=== PATIENT | female | born 1960 | race Caucasian/White ===

== ENCOUNTER 2024-03-20 22:16 | Observation (INO) | payer BC, SELFPAY ==
--- NOTE | 2024-03-20 22:16 | ECG_ITS ---
APPROVED REPORT Exam: Resting ECG HR:68 bpm ECG Measurements Heart Rate 68 AXES CO 169 P 55 QRSd 79 QRS 4 QT 403 T 73 QTc 421 Conclusion SINUS RHYTHM NONSPECIFIC T-WAVE ABNORMALITY BORDERLINE ECG Electronically signed by : JAYLON PINEDA, 03/21/2024 07:18:40
[2024-03-20 22:25] VITALS: BP 187/92; PULSE 89; RESP 14; TEMP 36.7; O2SAT 97; BMI 23.1
--- NOTE | 2024-03-20 22:27 | XR_ITS ---
PROCEDURE INFORMATION: Exam: XR Chest Exam date and time: 03/20/2024 10:37 PM Age: 63 years old Clinical indication: Dyspnea TECHNIQUE: Imaging protocol: Radiologic exam of the chest. Views: 1 view. COMPARISON: No relevant prior studies available. FINDINGS: Lungs: Clear, symmetrically inflated lungs. Pleural spaces: No pleural effusion. No pneumothorax. Heart/Mediastinum: Cardiac silhouette is normal in size for technique. Bones/joints: Age appropriate. IMPRESSION: No acute cardiopulmonary abnormality.
[2024-03-20] MEDS: ASPIRIN 81MG CHEWABLE TABLET 324 MG PO (22:30)
[2024-03-20] MEDS: NITROGLYCERIN 0.4MG SL TABLET 0.400000000000000022 MG SL ×2 (22:30→22:35)
--- NOTE | 2024-03-20 22:32 | PC.NURSE ---
patient placed in gown
[2024-03-20 22:36] LABS: Basophils # 0.1 K/mm3 (0-0.2); Eosinophils # 0.2 K/mm3 (0.0-0.4); Eosinophils % 2.5 % (0.1-12.0); Hematocrit 41.6 % (37.0-47.0); Lymphocytes # 2.7 K/mm3 (0.7-4.5); Mean Corpuscular HGB Conc 33.6 g/dL (31.8-35.4); Mean Corpuscular Volume 95.1 fl (81-99); Mean Platelet Volume 7.7 fl (7.4-10.4); Monocytes # 0.3 K/mm3 (0.1-1.0); Neutrophils # 3.9 K/mm3 (1.8-7.8); Neutrophils % 54.5 % (37.0-80.0); Platelet Count 268 K/mm3 (142-424); Red Blood Count 4.38 M/mm3 (4.20-5.40); Red Cell Distribution Width 13.5 % (11.5-17.5); White Blood Count 7.2 K/mm3 (4.8-10.8)
[2024-03-20 22:37] VITALS: BP 158/92; PULSE 86; RESP 17; O2SAT 94
--- NOTE | 2024-03-20 22:38 | PC.NURSE ---
I rounded on the pt and she states her chest pressure/pain has decreased from a 4/10 to a 2/10
[2024-03-20 22:40] LABS: Alanine Aminotransferase 29 U/L (12-78); Albumin Level 4.6 g/dl (3.5-5.0); Albumin/Globulin Ratio 1.7 (1.1-1.8); Alkaline Phosphatase 109 U/L (38-126); Anion Gap 13.7 mEq/L (5-15); Aspartate Amino Transferase 35 U/L (14-36); Bilirubin,Total 0.7 mg/dl (0.2-1.3); Blood Urea Nitrogen 24 mg/dl (7-17); Calcium 9.5 mg/dl (8.4-10.2); Carbon Dioxide 28 mmol/L (22.0-30.0); Chloride 106 mmol/L (98-107); Creatinine Clearance Estimated 48 mL/min (50-200); Estimated Glomerular Filt Rate 46 ml/min (>60); GFR (African American) 55 ML/MIN (>60); Globulin 2.7 g/dL (1.3-3.2); Glucose 111 mg/dl (74-100); Lipase 161 U/L (23-300); Potassium 3.7 mmoL/L (3.5-5.1); Sodium 144 mmol/L (136-145); Total Protein,Serum 7.3 g/dl (6.3-8.2)
[2024-03-20 22:45] LABS: D-Dimer 0.39 ug/mL (0.0-0.5)
--- NOTE | 2024-03-20 22:45 | ED_ITS ---
Discharge Plan Disposition Patient Disposition: Admitted Chief Complaint: Chest Pain Prescriptions Prescriptions: No Action hydrocortisone 5 mg Tablet 15 mg PO DAILY atorvastatin 40 mg Tablet 40 mg PO HS levothyroxine 75 mcg Tablet 75 mcg PO DAILY valsartan 320 mg Tablet 320 mg PO DAILY desmopressin 0.1 mg Tablet 0.1 mg PO HS omega 1-hsf-ixo-fish oil [Fish Oil] 300-1,000 mg Capsule 300 cap PO DAILY Clinical Impressions Clinical Impression: Unstable angina, Syncope Discharge ED Provider: Michael Pereyra [facility] General Chief Complaint: Chest Pain Stated Complaint: chest pain Time Seen by Provider: 03/20/24 22:17 Mode of Arrival: Ambulatory Source of Information: Patient Limitations: No Limitations Description of Symptoms (Recalled from ER Triage Doc. by RN): pt c/o L sided chest pressure that radiates to her L shoulder and down her L arm. pt rates the pressure a 4/10. pt states the pressure is relived with immobilization, and worsens with exertion. pt reports she had similar pain/pressure a few days ago. pt reports around lunch time today she had a syncopal episode lasting approximately 5 minutes. pt states this has happened previously. History of Present Illness HPI narrative: Patient is a 63-year-old female with history of hypertension hyperlipidemia without any known history of coronary disease presenting today with chest pain. She states that she was in her normal state of health and had a syncopal episode while she was at a restaurant that did have some prodrome. EMS were called at that point and she did not come to the hospital. However shortly after that she started developing significant left-sided chest discomfort that she describes as a pressure radiating into her left shoulder associated with exertion and alleviated by rest and diaphoresis associated with that as well. She states that the symptoms have been ongoing for the last 1 hour and have not been alleviated by anything other than rest. She currently at rest states that it is 4 out of 10. She did have a stress test several years ago that she believes was a chemical stress test which was unremarkable. She has never had a heart cath in the past. No history of smoking. No other risk factors that she is aware of. No hemoptysis lower extremity edema or swelling etc. Related Data Home Medications Medication Instructions Recorded Confirmed atorvastatin 40 mg tablet 40 mg PO HS Cholesterol 03/20/24 03/20/24 desmopressin 0.1 mg tablet 0.1 mg PO HS adh replacement 03/20/24 03/20/24 hydrocortisone 5 mg tablet 15 mg PO DAILY pit gland replace 03/20/24 03/20/24 levothyroxine 75 mcg tablet 75 mcg PO DAILY thyroid 03/20/24 03/20/24 omega 9-iom-rlb-fish oil 300 300 cap PO DAILY Supplement 03/20/24 03/20/24 mg-1,000 mg capsule (Fish Oil) valsartan 320 mg tablet 320 mg PO DAILY htn 03/20/24 03/20/24 Allergies Allergy/AdvReac Type Severity Reaction Status Date / Time No Known Allergies Allergy Verified 03/20/24 22:25 [facility] Disclaimer: The information contained in this section may have been updated after the patient was seen, as this information can be updated by other users. Medical History (Updated 03/20/24 @ 22:29 by Michael Pereyra MD) Hypothyroid Hyperlipidemia Hypertension Surgical History (Updated 03/20/24 @ 22:28 by Marylin Nolasco RN) History of surgical removal of pituitary gland Social History (Updated 03/20/24 @ 22:26 by Marylin Nolasco RN) Smoking Status: Never smoker alcohol intake: current current occupational status: employed Travel in the last 8 weeks: None household members: spouse housing: house marital status: ROS Obtained: Yes All systems reviewed & no additional complaints except as documented Physical Exam General General appearance: alert and in no apparent distress Respiratory Respiratory exam: Present normal lung sounds bilaterally and respiratory distress Cardiovascular Cardiovascular exam: Present regular rate and normal rhythm Abdominal Exam Abdominal exam: Present soft and distention Neurological Exam Neurological exam: Present alert and oriented X3 HEART Score HEART Score HEART Score assessment performed?: Yes History (anamnesis): Highly suspicious ECG: Non-specific disturbance Age: 45-65 years Risk factors: 1-2 risk factors Troponin: > 3x normal limit HEART Score: 7 Procedures Miscellaneous Procedure Procedure Performed: . Limited cardiac ultrasound Indication: Chest pain Identified structures: The heart was visualized in the parasternal long axis, parastenal short axis, apical four chamber and subxyphiod views. The IVC was visualized in the short axis and long axis at its entry into the right atrium. Findings: No moderate or severe depression of LVEF no severe right heart strain no pericardial effusion no definitive regional wall motion abnormalities noted Impression: Normal limited ultrasound of the heart Images were sent to permanent archive The study was technically adequate CPT: 14792-53 This study was performed by me, and I personally interpreted all images/videos. Based on my clinical judgement, these images were adequate and did not necessitate further imaging. Critical Care Critical Care Time Critical Care Time: Yes Attestation: On 03/20/24, the high probability of a clinically significant, sudden or life threatening deterioration of the following system(s) required my full and direct attention, intervention and personal management. The time I documented below is in addition to time spent performing reported procedures but includes the following listed in this critical care notation. Total Time Total Critical Care Time: 35 Medical Decision Making Rei Inquiry Pt receiving controlled substance: No Vital Signs Vital Signs: 03/20/24 22:25 Temperature 98.1 F Temperature Source Oral Pulse Rate [Left] 89 Respiratory Rate 14 Blood Pressure [Right Arm] 187/92 H Blood Pressure Mean [Right Arm] 123 Blood Pressure Source [Right Arm] Automatic Cuff Blood Pressure Position [Right Arm] Sitting 02 Sat by Pulse Oximetry 97 Oxygen Delivery Method Room Air Lab Data Lab results reviewed: Yes I reviewed the patient's lab results. Labs: Lab Results 03/20/24 22:23: WBC 7.2, RBC 4.38, Hgb 14.0, Hct 41.6, MCV 95.1, MCH 32.0 H, MCHC 33.6, RDW 13.5, Plt Count 268, MPV 7.7, Neut % (Auto) 54.5, Lymph % (Auto) 38.0, [place] % (Auto) 4.0, Eos % (Auto) 2.5, Baso % (Auto) 1.0, Neut # (Auto) 3.9, Lymph # (Auto) 2.7, [place] # (Auto) 0.3, Eos # (Auto) 0.2, Baso # (Auto) 0.1, D- Dimer 0.39, Sodium 144, Potassium 3.7, Chloride 106, Carbon Dioxide 28, Anion Gap 13.7, BUN 24 H, Creatinine 1.20 H, Estimated Creat Clear 48, Estimated GFR 46 L, Est GFR ( Amer) 55 L, Glucose 111 H, Calcium 9.5, Total Bilirubin 0.7, AST 35, ALT 29, Alkaline Phosphatase 109, Troponin I < 0.01, Total Protein 7.3, Albumin 4.6, Globulin 2.7, Albumin/Globulin Ratio 1.7, Lipase 161 03/20/24 22:23 03/20/24 22:23 Response Orders (Tests/Meds): ED MEDICATIONS Generic Name Dose Route Start Last Admin Trade Name Adam PRN Reason Stop Dose Admin Nitroglycerin 0.4 mg 03/20/24 22:27 03/20/24 22:35 Nitroglycerin 0.4mg Sl Tablet SL 04/19/24 22:26 0.4 mg Q5MINP PRN Administration Chest Pain Discontinued Medications Generic Name Dose Route Start Last Admin Trade Name Freq PRN Reason Stop Dose Admin Aspirin 324 mg 03/20/24 22:27 03/20/24 22:30 Aspirin 81mg Chewable Tablet PO 03/20/24 22:28 324 mg ONCE ONE Administration ORDERS Category Date Time Status CXR --portable [XR chest portable] Stat Exams 03/20/24 22:27 Taken POCUS Point of Care (ER Only) Stat Exams 03/20/24 22:28 Ordered CBC w/Auto Diff [Complete Blood Count Auto Diff] Stat Lab 03/20/24 22:23 Completed CMP [Comprehensive Metabolic Panel] Stat Lab 03/20/24 22:23 Completed D-Dimer Stat Lab 03/20/24 22:23 Completed Lipase Stat Lab 03/20/24 22:23 Completed Trop I [Troponin I] Stat Lab 03/20/24 22:23 Completed Troponin I Q3H Lab 03/21/24 01:30 Ordered Troponin I Q3H Lab 03/21/24 04:30 Ordered MDM Narrative Medical Decision Narrative: Patient is a 63-year-old female with above history very concerning for acute coronary syndrome. No STEMI on EKG. EKG was performed to person interpreted shows a sinus rhythm there are T wave inversions in the aVL and V2 leads V2 in particular appears pathologic. I do not have an old EKG to compare to. She is never been told she has had an abnormal EKG in the past. No ST elevations or depressions or acute definitive ischemic changes noted however. There is a normal axis. No conduction abnormalities. Patient symptoms were concerning enough to be due to limited bedside ultrasound which I performed and did not see any obvious regional wall motion abnormalities at the moment. She was given aspirin and I titrated nitroglycerin to resolution of her symptoms as she would be a candidate to go to the Clinical Technician if we cannot get her pain under control. After 1 nitroglycerin her pain went from 4-2 and after the second nitroglycerin her pain was completely resolved. She is currently asymptomatic. Regardless of whether or not her troponin is elevated she will be treated for acute coronary syndrome. Will discuss the case with hospital medicine for admission at which point cardiology can see her tomorrow
--- NOTE | 2024-03-20 22:45 | PC.NURSE ---
Patient reports pain resolution at this time after nitro x 2 doses. Provider notified.
--- OUTSIDE RECORDS SUMMARY | 2024-03-20 22:59 | XMS_ITS | Patient Health Record ---
Author Name Unknown Organization [facility] Address [address] [place] [address] Care Team Providers Care Merchandise Support Associate Name Role Phone Christiana Maza Unavailable [phone] Allergies No Known Allergies Results Component Value Reference Range Notes Pap w/HPV Reviewed date:11/25/2023 12:56:27 PM Interpretation:NILM/HPV neg Performing Lab:[facility] - MIR CLIA ID [id number], [address], [address], [place] [address], Director - Dian Huggins MD Notes/Report: Any Nucleic Acid Amplification testing is performed on the [employer] [place]. Diagnosis: Negative for intraepithelial lesion or malignancy. AP results FINAL VICE PRESIDENT [facility] [facility] CYTOLOGY REPORT DIAGNOSIS: Negative for intraepithelial lesion or malignancy. Specimen Adequacy: Satisfactory for interpretation with endocervical/transformat ion zone component present. Pertinent Clinical History/History of Surgery: Not Provided Collection Technique: [place]-Alone, [place]-Alone Results of Last Pap: Not Provided LMP: unknown Date of Last Pap: Not Provided Specimen Source: Cervical/Endocervical Specimen Type: Not Provided Other Gynecological Patient Information: No patient information provided Recommendation: Follow-up based on current clinical guidelines and/or clinical consideration. Screening note: This specimen has been analyzed by the [employer] System, an interactive computer system which assists the lab in screening of ThinPrep Pap Test slides. Following imaging, the slide was reviewed by a Eradicator and/or Pathologist. Negative Educational Note: The pap screening test aids in the detection of premalignant and malignant states of the cervix. False positive and negative results may occur. It is not a diagnostic test. If abnormal cells are reported, follow-up based on current clinical guidelines and/or clinical consideration is recommended. Justina Sun Eradicator CPT Codes: 35221 ICD Codes: Z01.419 HPV High-Risk Negative Negative Reason For Referral No Information Medications Medication SIG (Take, Route, Fr equency, Duration) Notes Start Date End Date Status Fish Oil Active Valsartan Active Levothyroxine Sodium Active Hydrocortisone Activ e Desmopressin Acetate Active Atorvastatin Calcium Active Social History Tobacco Use: Social History Observation Description Date Details (start date - stop date) Never Smoker NA - NA Sex Assigned At : Social History Observation Description Sex Assigned At Female Tobacco Control (Standard) Question Answer Notes Tobacco use: Nonsmoker Vital Signs Heart Rate 86 /min 11/18/2023 Oximetry 99 % 11/18/2023 Blood pressure diastolic 82 mm Hg 11/18/2023 Height 64 in 11/18/2023 Blood pressure systolic 130 mm Hg 11/18/2023 Weight 136.8 lbs 11/18/2023 BMI 23.48 kg/m2 11/18/2023 Encounters Encounter Location Date Provider Diagnosis [facility] [address] [place] [address] 11/18/2023 Christiana Maza Encounter for gynecological examination (general) (routine) without abnormal findings Z01.419 and Visit for screening mammogram Z12.31 Assessments Encounter Date Diagnosis (ICD Code) Assessment Notes Treat ment Notes Treatment Clinical Notes 11/18/2023 Encounter for gynecological examination (general) (routine) without abnormal findings (ICD-10 - Z01.419) We encouraged a healthy lifestyle for our patients. Avoid the use of tobacco and drugs. Limit the use of alcohol. Take a multivitamin daily that contains 400mcg folic acid, 400-500mg calcium, and 800 units vitamin D. Exercise regularly (4 or more times per week for 30 mins. or more each time), eat a healthy diet, and maintain a healthy weight. Perform monthly breast self exams., Well Visit, Women 50 to 65: Care Instructions material was published 11/18/2023 Visit for screening mammogram (ICD-10 - Z12.31) Plan Of Treatment Next Appt Details Provider Name:Christiana Maza, 11/24/2024 11:30:00 AM, [address] [facility], [place], [address], Insurance Providers Payer Name Payer Address Payer Phone Subscriber Number Group Number Insured Name Patient Relationship to Insured Coverage Start Date Coverage End Date Anton RANDALL [address] [place] [address] [id number] RosaiteMia Self - patient is the insured Medical (General) History Medical History History ICD Code high blood pressure IBS high cholesterol pituitary gland tumor Surgical History Surgery Date(Month/Year) pituitary gland tumor removal
[2024-03-20 23:00] VITALS: BP 150/81; PULSE 77; RESP 17; O2SAT 95
[2024-03-20 23:00] LABS: Troponin I < 0.01 ng/ml (0.00-0.034)
--- NOTE | 2024-03-20 23:01 | ECG_ITS ---
APPROVED REPORT Exam: Resting ECG HR:73 bpm ECG Measurements Heart Rate 73 AXES TN 166 P 54 QRSd 94 QRS -2 QT 413 T 71 QTc 439 Conclusion SINUS RHYTHM MODERATE T-WAVE ABNORMALITY, CONSIDER ANTERIOR ISCHEMIA [-0.1+ mV T-WAVE IN V3/V4] ABNORMAL ECG Electronically signed by : JAYLON PINEDA, 03/21/2024 07:18:27
--- NOTE | 2024-03-20 23:03 | PC.NURSE ---
Admitting notified for admission. OBS/Hospitalist/Unstable Angina/206
--- NOTE | 2024-03-20 23:04 | PC.NURSE ---
repeat EKG completed at 2301
--- NOTE | 2024-03-20 23:11 | PC.NURSE ---
Report called to Jessica VEGA
[2024-03-20 23:18] VITALS: BP 150/81; PULSE 69; RESP 17; TEMP 36.7; O2SAT 97
--- NOTE | 2024-03-20 23:57 | P.HP_ITS ---
History of Present Illness *Admission Date: 03/20/24 *Reason for visit:: CP *History of present illness: This is a 63-year-old female with PMHx of hypertension hyperlipidemia, hypothyroidism, without any known history of coronary disease, presented to ED today for evaluation with chest pain. She states that she was having dinner at a near by restaurant and had a syncopal episode. EMS were called at that point and she did not come to the hospital. However shortly after that she started developing significant left-sided chest discomfort that she describes as a pressure radiating into her left shoulder associated with exertion and alleviated by rest and diaphoresis associated with that as well. She states that the symptoms have been ongoing for the last 1 hour and have not been alleviated by anything other than rest. She currently at rest states that it is 4 out of 10. She did have a stress test several years ago that she believes was a chemical stress test which was unremarkable. She has never had a heart cath in the past. No history of smoking. No other risk factors that she is aware of. No hemoptysis lower extremity edema or swelling etc. Admitted for further work up and management. [facility] Disclaimer: The information contained in this section may have been updated after the patient was seen, as this information can be updated by other users. Medical History (Updated 03/21/24 @ 01:27 by Brady Najera APRN) Hypothyroid Hyperlipidemia Hypertension Surgical History (Updated 03/20/24 @ 22:28 by Marylin Nolasco RN) History of surgical removal of pituitary gland Family History (Updated 03/20/24 @ 23:51 by Lorna Daniels RN) Other Cancer Diabetes Heart disease Social History (Updated 03/20/24 @ 23:51 by Lorna Daniels RN) Smoking Status: Never smoker alcohol intake: current current occupational status: employed Travel in the last 8 weeks: None household members: spouse housing: house marital status: Review of Systems Review of Systems Review of systems:: pertinent systems reviewed and negative unless documented b elow Meds Home Medications and Allergies Home Medications Medication Instructions Recorded Confirmed Type atorvastatin 40 mg tablet 40 mg PO HS Cholesterol 03/20/24 03/20/24 History desmopressin 0.1 mg tablet 0.1 mg PO HS adh replacement 03/20/24 03/20/24 History hydrocortisone 5 mg tablet 15 mg PO DAILY pit gland replace 03/20/24 03/20/24 History levothyroxine 75 mcg tablet 75 mcg PO DAILY thyroid 03/20/24 03/20/24 History omega 6-aeo-fct-fish oil 300 300 cap PO DAILY Supplement 03/20/24 03/20/24 Hi story mg-1,000 mg capsule (Fish Oil) valsartan 320 mg tablet 320 mg PO DAILY htn 03/20/24 03/20/24 History New Prescriptions to Start Prescriptions: Allergies Allergy/AdvReac Type Severity Reaction Status Date / Time No Known Allergies Allergy Verified 03/20/24 22:25 Exam Data for Last 24 hours Vital signs and Labs for Last 24 Hours: Temp Pulse Resp BP Pulse Ox O2 Del Method 98.1 F 69 17 150/81 H 95 Room Air 03/20/24 23:18 03/20/24 23:18 03/20/24 23:18 03/20/24 23:18 03/20/24 23:00 03/20/24 22:25 Laboratory Results - last 24 hr 03/20/24 22:23: WBC 7.2, RBC 4.38, Hgb 14.0, Hct 41.6, MCV 95.1, MCH 32.0 H, MCHC 33.6, RDW 13.5, Plt Count 268, MPV 7.7, Neut % (Auto) 54.5, Lymph % (Auto) 38.0, [place] % (Auto) 4.0, Eos % (Auto) 2.5, Baso % (Auto) 1.0, Neut # (Auto) 3.9, Lymph # (Auto) 2.7, [place] # (Auto) 0.3, Eos # (Auto) 0.2, Baso # (Auto) 0.1, D- Dimer 0.39, Sodium 144, Potassium 3.7, Chloride 106, Carbon Dioxide 28, Anion Gap 13.7, BUN 24 H, Creatinine 1.20 H, Estimated Creat Clear 48, Estimated GFR 46 L, Est GFR ( Amer) 55 L, Glucose 111 H, Calcium 9.5, Total Bilirubin 0.7, AST 35, ALT 29, Alkaline Phosphatase 109, Troponin I < 0.01, Total Protein 7.3, Albumin 4.6, Globulin 2.7, Albumin/Globulin Ratio 1.7, Lipase 161 I & O for Last 24 hours: Intake & Output 03/17/24 03/18/24 03/19/24 03/20/24 23:59 23:59 23:59 23:59 Weight 61.235 kg Constitutional Constitutional: no acute distress *Routine HEENT Exam Head: Present normocephalic Eye: Present EOMI and PERRL ENT: Present mucous membranes moist *Routine Neck Exam Neck: Present supple; Absent lymphadenopathy *Routine Respiratory Exam Respiratory: Present CTA bilaterally *Routine Cardiovascular Exam Cardiovascular: Present RRR *Routine Abdominal Exam Abdominal: Present soft and normoactive bowel sounds; Absent tenderness *Routine Rectal Exam Rectal:: deferred *Routine Genitalia Exam Genitalia:: deferred *Routine Extremities Exam Extremities: Absent cyanosis, clubbing or edema *Routine Skin Exam Skin: Present warm; Absent rash *Routine Neurological Exam Neurological: Present alert and oriented X3 H&P: Result Imaging and Cardiology EKG: Status: image reviewed by me, Preliminary report and final report Chest x-ray: Status: image reviewed by me, Preliminary report and final report Assessment and Plan *Assessment and plan (1) Unstable angina: Status: Acute Category: Medical Code(s): I20.0 - Unstable angina (2) Syncope: Status: Acute Qualifiers: Syncope type: unspecified Qualified Code(s): R55 - Syncope and collapse Category: Medical Code(s): R55 - Syncope and collapse (3) Hypertension: Status: Acute Qualifiers: Hypertension type: unspecified Qualified Code(s): I10 - Essential (primary) hypertension Category: Medical Code(s): I10 - Essential (primary) hypertension (4) Hyperlipidemia: Status: Acute Qualifiers: Hyperlipidemia type: unspecified Qualified Code(s): E78.5 - Hyperlipidemia, unspecified Category: Medical Code(s): E78.5 - Hyperlipidemia, unspecified (5) Hypothyroid: Status: Acute Qualifiers: Hypothyroidism type: unspecified Qualified Code(s): E03.9 - Hypothyroidism, unspecified Category: Medical Code(s): E03.9 - Hypothyroidism, unspecified Plan 63-year-old female with PMHx of hypertension hyperlipidemia, hypothyroidism, without any known history of coronary disease, presented to ED today for evaluation with chest pain. She states that she was having dinner at a near by restaurant and had a syncopal episode. On arrival patient was still having chest discomfort. nitro SL x2 was given. loaded with 324mg aspirin. EKG does not showed ST changes. troponin are initially negative. ED requested admission for continuous monitoring. agreed for it. Plan as follow: Unstable angina. Syncope. to rule out ACS: Admit patient for continuous cardiac monitoring Trending troponin EKG as needed Monitor for chest pain and vital signs per unit protocol Cardiology consult. Keep n.p.o. after midnight for possible cardiac intervention Repeat labs in the morning Obtain lipid profile and the rest of the cardiac risk assessment aspirin 324mg. Continue daily 81 mg -Hypertension: Resume valsartan Hyperlipidemia: On atorvastatin Hypothyroidism On Synthroid Lovenox for DVT prophylaxis. On Protonix for GI bleed protection Full code
[2024-03-21] VITALS: BP 150/81; PULSE 50; PULSE 66; RESP 18; O2SAT 97
[2024-03-21] MEDS: 0.9 % SODIUM CHLORIDE 1000ML 1,000 ML 50 ML IV (00:07)
[2024-03-21 02:05] LABS: Troponin I < 0.01 ng/ml (0.00-0.034)
[2024-03-21 04:00] VITALS: BP 136/61; PULSE 50; PULSE 55; RESP 16; TEMP 36.8; O2SAT 97; BMI 23.0
--- NOTE | 2024-03-21 04:47 | PC.NURSE ---
pt admitted for [facility]. denies chest pain/pressure, vss, nsr on monitor, trop x2 <0.01. pt has been npo after mn for cadiology consult
[2024-03-21 05:04] LABS: Thyroid Stimulating Hormone < 0.02 uIU/mL (0.465-4.68)
[2024-03-21 05:05] LABS: Troponin I < 0.01 ng/ml (0.00-0.034)
[2024-03-21 07:37] LABS: Chloride 109 mmol/L (98-107); Potassium 3.9 mmoL/L (3.5-5.1); Sodium 141 mmol/L (136-145)
[2024-03-21 07:39] LABS: Basophils % 0.6 % (0.1-2.0); Eosinophils # 0.1 K/mm3 (0.0-0.4); Eosinophils % 2.3 % (0.1-12.0); Hematocrit 38.3 % (37.0-47.0); Hemoglobin 12.6 g/dL (12.2-16.2); Lymphocytes # 2.3 K/mm3 (0.7-4.5); Lymphocytes % 38.6 % (10-50); Mean Corpuscular Hemoglobin 31.7 pg (27.0-31.2); Mean Platelet Volume 8.3 fl (7.4-10.4); Monocytes # 0.3 K/mm3 (0.1-1.0); Monocytes % 4.5 % (1.7-9.3); Neutrophils # 3.2 K/mm3 (1.8-7.8); Neutrophils % 53.8 % (37.0-80.0); Platelet Count 228 K/mm3 (142-424); Red Blood Count 3.99 M/mm3 (4.20-5.40); Red Cell Distribution Width 13.8 % (11.5-17.5)
[2024-03-21 07:40] LABS: Anion Gap 10.9 mEq/L (5-15); Blood Urea Nitrogen 22 mg/dl (7-17); Calcium 8.7 mg/dl (8.4-10.2); Carbon Dioxide 25 mmol/L (22.0-30.0); Cholesterol 125 mg/dl (140-200); Creatinine Clearance Estimated 56 mL/min (50-200); Estimated Glomerular Filt Rate 56 ml/min (>60); GFR (African American) 68 ML/MIN (>60); Glucose 102 mg/dl (74-100); Magnesium 2.1 mg/dl (1.6-2.3); Triglycerides 175 mg/dl (30-150); VLDL Cholesterol 35 mg/dL (0-40)
[2024-03-21 07:41] LABS: Chol/HDL Ratio 4.5 (1-3.5); HDL Cholesterol 28 mg/dl (40-60)
[2024-03-21 07:49] LABS: INR 1.03 (0.9-1.1); Prothrombin Time 11.1 seconds (10.1-12.5)
[2024-03-21 08:00] VITALS: BP 126/56; PULSE 50; PULSE 55; RESP 16; TEMP 36.6; O2SAT 98
[2024-03-21] MEDS: ASPIRIN 81MG CHEWABLE TABLET 81 MG PO (08:42)
[2024-03-21] MEDS: IRBESARTAN 300MG TABLET 300 MG PO (08:42)
[2024-03-21] MEDS: LEVOTHYROXINE 75MCG (0.075MG) TAB 75 MCG PO (08:42)
--- NOTE | 2024-03-21 08:42 | HMH.PHAINT1 ---
Pharmacy Intervention Comments: MEDICATION RECONCILIATION COMPLETED ON PATIENT USING EXTERNAL FILL HISTORY FROM PHARMACY. -ZULY ELDRIDGE, BABITAD
[2024-03-21 10:02] LABS: Hemoglobin A1C 5.1 % (4.0-6.0)
--- NOTE | 2024-03-21 11:33 | P.DS_ITS ---
General Admission date:: 03/20/24 Discharge date: 03/21/24 HPI HPI HPI: This is a 63-year-old female with PMHx of hypertension hyperlipidemia, hypothyroidism, without any known history of coronary disease, presented to ED today for evaluation with chest pain. She states that she was having dinner at a near by restaurant and had a syncopal episode. EMS were called at that point and she did not come to the hospital. However shortly after that she started developing significant left-sided chest discomfort that she describes as a pressure radiating into her left shoulder associated with exertion and allevi ated by rest and diaphoresis associated with that as well. She states that the symptoms have been ongoing for the last 1 hour and have not been alleviated by anything other than rest. She currently at rest states that it is 4 out of 10. She did have a stress test several years ago that she believes was a chemical stress test which was unremarkable. She has never had a heart cath in the past. No history of smoking. No other risk factors that she is aware of. No hemoptysis lower extremity edema or swelling etc. Admitted for further work up and management. Hospital Course Hospital Course Hospital Course: 63-year-old female with PMHx of hypertension hyperlipidemia, hypothyroidism, without any known history of coronary disease, presented to ED today for evaluation with chest pain. She states that she was having dinner at a near by restaurant and had a syncopal episode. On arrival patient was still having chest discomfort. nitro SL x2 was given. loaded with 324mg aspirin. EKG does not showed ST changes. troponin are initially negative. ED requested admission for continuous monitoring. agreed for it. Plan as follow: Unstable angina. Syncope. to rule out ACS: - Patient to follow up with cardiology on saturday, no complains of chest since arrival, patient mentions she does not want to stay in hospital until saturday to be seen by cardiology, she is requesting to be discharged, spoke to cardiology who recommended to follow up in office on saturday and can be discharged, will dc on asa 81mg daily patient also counseled to come to ED if has any chest pain, patient verbalized understanding On the date of discharge, the patient reported feeling stable. The patient was found not to be in any acute distress, and no new abnormalities on physical examination. Further, the patient expressed appropriate understanding of, and agreement with, the discharge recommendations, medications, and plan. Time spent 37 mins Exam Data for Last 24 hours Vital signs and Labs for Last 24 Hours: Temp Pulse Resp BP Pulse Ox O2 Del Method 97.9 F 55 L 16 126/56 L 98 Room Air 03/21/24 08:00 03/21/24 08:00 03/21/24 08:00 03/21/24 08:00 03/21/24 08:00 03/21/24 09:00 Laboratory Results - last 24 hr 03/20/24 22:23: WBC 7.2, RBC 4.38, Hgb 14.0, Hct 41.6, MCV 95.1, MCH 32.0 H, MCHC 33.6, RDW 13.5, Plt Count 268, MPV 7.7, Neut % (Auto) 54.5, Lymph % (Auto) 38.0, [place] % (Auto) 4.0, Eos % (Auto) 2.5, Baso % (Auto) 1.0, Neut # (Auto) 3.9, Lymph # (Auto) 2.7, [place] # (Auto) 0.3, Eos # (Auto) 0.2, Baso # (Auto) 0.1, D- Dimer 0.39, Sodium 144, Potassium 3.7, Chloride 106, Carbon Dioxide 28, Anion Gap 13.7, BUN 24 H, Creatinine 1.20 H, Estimated Creat Clear 48, Estimated GFR 46 L, Est GFR ( Amer) 55 L, Glucose 111 H, Calcium 9.5, Total Bilirubin 0.7, AST 35, ALT 29, Alkaline Phosphatase 109, Troponin I < 0.01, Total Protein 7.3, Albumin 4.6, Globulin 2.7, Albumin/Globulin Ratio 1.7, Lipase 161 03/21/24 01:20: Troponin I < 0.01 03/21/24 04:20: Troponin I < 0.01, TSH < 0.02 L 03/21/24 06:41: WBC 6.0, RBC 3.99 L, Hgb 12.6, Hct 38.3, MCV 96.0, MCH 31.7 H, MCHC 33.0, RDW 13.8, Plt Count 228, MPV 8.3, Neut % (Auto) 53.8, Lymph % (Auto) 38.6, [place] % (Auto) 4.5, Eos % (Auto) 2.3, Baso % (Auto) 0.6, Neut # (Auto) 3.2, Lymph # (Auto) 2.3, [place] # (Auto) 0.3, Eos # (Auto) 0.1, Baso # (Auto) 0.0, PT 11.1, INR 1.03, Sodium 141, Potassium 3.9, Chloride 109 H, Carbon Dioxide 25, Anion Gap 10.9, BUN 22 H, Creatinine 1.00, Estimated Creat Clear 56, Estimated GFR 56 L, Est GFR ( Amer) 68 D, Glucose 102 H, Hemoglobin A1c 5.1, Calcium 8.7, Magnesium 2.1, Triglycerides 175 H, Cholesterol 125 L, LDL Cholesterol Direct 61.30 L, VLDL Cholesterol 35, HDL Cholesterol 28 L, Cholesterol/HDL Ratio 4.5 H I & O for Last 24 hours: Intake & Output 03/18/24 03/19/24 03/20/24 03/21/24 23:59 23:59 23:59 23:59 Output Total 0 / 0 Balance 0 / 0 Weight 61.235 kg 61.235 kg Constitutional Constitutional: no acute distress *Routine HEENT Exam Head: Present normocephalic Eye: Present EOMI and PERRL ENT: Present mucous membranes moist *Routine Neck Exam Neck: Present supple; Absent lymphadenopathy *Routine Respiratory Exam Respiratory: Present CTA bilaterally *Routine Cardiovascular Exam Cardiovascular: Present RRR *Routine Abdominal Exam Abdominal: Present soft and normoactive bowel sounds; Absent tenderness *Routine Extremities Exam Extremities: Absent cyanosis, clubbing or edema *Routine Skin Exam Skin: Present warm; Absent rash *Routine Neurological Exam Neurological: Present alert and oriented X3 Results Data Completed and Pending Labs on day of discharge: Labs from last 24 hours 03/21/24 03/21/24 03/21/24 06:41 04:20 01:20 WBC 6.0 RBC 3.99 L Hgb 12.6 Hct 38.3 MCV 96.0 MCH 31.7 H MCHC 33.0 RDW 13.8 Plt Count 228 MPV 8.3 Neut % (Auto) 53.8 Lymph % (Auto) 38.6 [place] % (Auto) 4.5 Eos % (Auto) 2.3 Baso % (Auto) 0.6 Neut # (Auto) 3.2 Lymph # (Auto) 2.3 [place] # (Auto) 0.3 Eos # (Auto) 0.1 Baso # (Auto) 0.0 PT 11.1 INR 1.03 D-Dimer Sodium 141 Potassium 3.9 Chloride 109 H Carbon Dioxide 25 Anion Gap 10.9 BUN 22 H Creatinine 1.00 Estimated Creat Clear 56 Estimated GFR 56 L Est GFR ( Amer) 68 D Glucose 102 H Hemoglobin A1c 5.1 Calcium 8.7 Magnesium 2.1 Total Bilirubin AST ALT Alkaline Phosphatase Troponin I < 0.01 < 0.01 Total Protein Albumin Globulin Albumin/Globulin Ratio Triglycerides 175 H Cholesterol 125 L LDL Cholesterol Direct 61.30 L VLDL Cholesterol 35 HDL Cholesterol 28 L Cholesterol/HDL Ratio 4.5 H Lipase TSH < 0.02 L 03/20/24 22:23 WBC 7.2 RBC 4.38 Hgb 14.0 Hct 41.6 MCV 95.1 MCH 32.0 H MCHC 33.6 RDW 13.5 Plt Count 268 MPV 7.7 Neut % (Auto) 54.5 Lymph % (Auto) 38.0 [place] % (Auto) 4.0 Eos % (Auto) 2.5 Baso % (Auto) 1.0 Neut # (Auto) 3.9 Lymph # (Auto) 2.7 [place] # (Auto) 0.3 Eos # (Auto) 0.2 Baso # (Auto) 0.1 PT INR D-Dimer 0.39 Sodium 144 Potassium 3.7 Chloride 106 Carbon Dioxide 28 Anion Gap 13.7 BUN 24 H Creatinine 1.20 H Estimated Creat Clear 48 Estimated GFR 46 L Est GFR ( Amer) 55 L Glucose 111 H Hemoglobin A1c Calcium 9.5 Magnesium Total Bilirubin 0.7 AST 35 ALT 29 Alkaline Phosphatase 109 Troponin I < 0.01 Total Protein 7.3 Albumin 4.6 Globulin 2.7 Albumin/Globulin Ratio 1.7 Triglycerides Cholesterol LDL Cholesterol Direct VLDL Cholesterol HDL Cholesterol Cholesterol/HDL Ratio Lipase 161 TSH DS: Diagnosis Discharge Diagnosis (1) Unstable angina: Status: Acute Code(s): I20.0 - Unstable angina (2) Syncope: Status: Acute Code(s): R55 - Syncope and collapse Qualifiers: Syncope type: unspecified Qualified Code(s): R55 - Syncope and collapse (3) Hypertension: Status: Acute Code(s): I10 - Essential (primary) hypertension Qualifiers: Hypertension type: unspecified Qualified Code(s): I10 - Essential (primary) hypertension (4) Hyperlipidemia: Status: Acute Code(s): E78.5 - Hyperlipidemia, unspecified Qualifiers: Hyperlipidemia type: unspecified Qualified Code(s): E78.5 - Hyperlipidemia, unspecified (5) Hypothyroid: Status: Acute Code(s): E03.9 - Hypothyroidism, unspecified Qualifiers: Hypothyroidism type: unspecified Qualified Code(s): E03.9 - Hypothyroidism, unspecified Meds Home Medications and Allergies Home Medications Medication Instructions Recorded Confirmed Type atorvastatin 40 mg tablet 40 mg PO HS 03/20/24 03/21/24 History desmopressin 0.1 mg tablet 0.1 mg PO HS 03/20/24 03/21/24 History hydrocortisone 5 mg tablet 15 mg PO DAILY 03/20/24 03/21/24 History levothyroxine 75 mcg tablet 75 mcg PO DAILY 03/20/24 03/21/24 History omega 7-ivv-kml-fish oil 300 1 cap PO DAILY 03/20/24 03/21/24 History mg-1,000 mg capsule (Fish Oil) valsartan 320 mg tablet 320 mg PO DAILY 03/20/24 03/21/24 History aspirin 81 mg chewable tablet 81 mg PO DAILY 14 days #14 tabs 03/21/24 Rx New Prescriptions to Start Prescriptions: aspirin Maria Negrete Allergies Allergy/AdvReac Type Severity Reaction Status Date / Time No Known Allergies Allergy Verified 03/20/24 22:25 Discharge Plan Disposition Patient Disposition: Home, Self-Care Condition: Good Follow up Plan Follow up with: Jose Esparza MD [Staff Physician] - 1 week (The office will call you with a follow up appt. ) Prescriptions/Medication Reconciliation: New aspirin 81 mg Tablet,Chewable 81 mg PO DAILY 14 Days Qty: 14 0RF Continued hydrocortisone 5 mg Tablet 15 mg PO DAILY atorvastatin 40 mg Tablet 40 mg PO HS levothyroxine 75 mcg Tablet 75 mcg PO DAILY valsartan 320 mg Tablet 320 mg PO DAILY desmopressin 0.1 mg Tablet 0.1 mg PO HS omega 4-oqm-[id number]-fish oil [Fish Oil] 300-1,000 mg Capsule 1 cap PO DAILY Problem Reconciliation Problems Reviewed?: Yes Patient Discharge Instructions ACTIVITY: Ambulate as tolerated DIET: continue same diet Patient Instructions: DI for Angina Providers Primary Care Provider: Provider,Referral Admit Provider: Maria Negrete Attending Provider: Maria Negrete
--- NOTE | 2024-03-24 13:44 | CARE MANAGER ---
Contacted patient related to hospital discharge. She states she is doing well and denies any questions or concerns. GARY Cedeno
== END 2024-03-21 11:54 | disposition home or self-care (01) ==
LOC: ER 23:01 → 2ND 23:10
PROVIDERS: Nurse Practitioner Family; Admitting Provider Internal Medicine; Emergency Provider Student in an Organized Health Care Education/Training Program; Visit Provider Internal Medicine
DX: I20.0 Unstable angina (principal); R55 Syncope and collapse; I10 Essential (primary) hypertension; E78.5 Hyperlipidemia, unspecified; E03.9 Hypothyroidism, unspecified; Z79.899 Other long term (current) drug therapy
CPT/HCPCS: 36415; 71045; 80048; 80053; 80061; 83036; 83690; 83735; 84443; 84484; 85025; 85378; 85610; 93005; 99291; G0378